=== PATIENT | female | born 1935 ===

== ENCOUNTER 2022-02-08 17:01 | Emergency (ER) | payer OTHER ==
[~2022-02-08] VITALS: Ht 167.6 cm; Wt 53.5 kg
[2022-02-08] MEDS ORDERED: SIMVASTATIN20 MG PO (18:27)
[2022-02-08] MEDS ORDERED: METFORMIN HCL1000 M3 PO (18:27)
[2022-02-08] MEDS ORDERED: QUINAPRIL HCL5 MG PO (18:27)
[2022-02-08] MEDS ORDERED: DILTIAZEM HCL120 M1 PO (18:27)
[2022-02-08] MEDS ORDERED: LEVOTHYROXINE75 MCG PO (18:27)
[2022-02-08] MEDS ORDERED: ALENDRONATE SOD35 MG PO (18:28)
== END 2022-02-08 21:29 | disposition home or self-care (01) ==
LOC: ER 17:01
DX: J40 Bronchitis, not specified as acute or chronic (principal); N39.0 Urinary tract infection, site not specified; Z20.822 Contact with and (suspected) exposure to COVID-19

== ENCOUNTER 2024-05-25 07:49 | Emergency (ER) | payer OTHER ==
[~2024-05-25] VITALS: Ht 167.6 cm; Wt 56.7 kg
[~2024-05-25 07:49] MED LIST: ALENDRONATE SOD35 MG PO; COZAAR25 MG PO; DILTIAZEM HCL120 M1 PO; EZALLOR SPRINKLE5 MG PO; JARDIANCE10 MG PO; LEVOTHYROXINE75 MCG PO; METFORMIN HCL1000 M3 PO; QUINAPRIL HCL5 MG PO; SIMVASTATIN20 MG PO
[2024-05-25] MEDS ORDERED: BISOPROLOL-HCT1 EACH PO (08:24)
[2024-05-25] MEDS ORDERED: ONDANSETRON HCL 2 MG/ML VIAL IV STA (08:55)
[2024-05-25] MEDS ORDERED: 0.9 % SODIUM CHLORIDE 1,000 ML IV SCH (09:00)
[2024-05-25] MEDS ORDERED: MECLIZINE HCL 25 MG TABLET PO ONE (09:00)
[2024-05-25 09:13] LABS: HEMATOCRIT 33.5 % (36.0-45.00); HEMOGLOBIN 11.6 g/dL (12.0-15.00); MEAN CELL VOLUME 90.7 fL (80.00-100.00); MEAN CORPUSCULAR HEMOGLOBIN 31.3 pg (27.00-32.0); MEAN CORPUSCULAR HGB CONC 34.5 g/dl (32.0-36.0); PLATELET COUNT 258 K/uL (150-450); RED CELL DISTRIBUTION WIDTH 14.9 % (11.5-14.5)
[2024-05-25 10:20] LABS: PH,URINE 5.5 (5.0-8.0); URINE APPEARANCE Cloudy; URINE BILIRRUBIN Negative (NEGATIVE); URINE BLOOD NHT; URINE COLOR Yellow; URINE GLUCOSE Negative (NEGATIVE); URINE KETONE Negative (NEGATIVE); URINE LEUKOCYTE Large; URINE NITRATE Positive; URINE PROTEIN Trace (NEGATIVE); URINE UROBILINOGEN 0.2 E.U./dl
[2024-05-25 10:25] LABS: URINE WBC 1801.6 uL (0.0-23.2)
[2024-05-25 10:33] LABS: CALCIUM 9.2 mg/dL (8.5-10.1); CREATININE SERUM 0.86 mg/dL (0.55-1.02); GFR 62.56; POTASSIUM 3.97 mEq/L (3.5-5.1)
[2024-05-25 10:34] LABS: URINE BACTERIA > 9821.5 uL (0.0-1933); URINE CAST 0.29 uL (0.0-1.40); URINE RBC 0.8 uL (0.0-20.8)
[2024-05-25] MEDS ORDERED: levoFLOXacin IN DEXTROSE 5 % 500MG/100ML PIGGYBAG IV ONE (10:45)
== END 2024-05-25 12:58 | disposition home or self-care (01) ==
LOC: ER 07:49
PROVIDERS: Emergency Medicine
DX: R42 Dizziness and giddiness (principal); I10 Essential (primary) hypertension; E03.8 Other specified hypothyroidism; E11.9 Type 2 diabetes mellitus without complications; Z79.84 Long term (current) use of oral hypoglycemic drugs
CPT/HCPCS: 36415; 70450; 96365; 96366; 99284; J1956; J2405; J7030